=== PATIENT | male | born 1950 | race Caucasian/White ===

== ENCOUNTER → 2017-03-09 | Outpatient (REF) | payer MEDICARE, OTHER ==
--- NOTE | 2017-03-09 08:28 | REP ---
Clinical: Pain . Technique: Internal rotation, external rotation, and Y view left shoulder . Findings: No acute fracture or dislocation. The acromioclavicular and glenohumeral joints are intact. No periarticular calcifications or degenerative changes are appreciated. Sub acromial space is normal. Surrounding soft tissues are unremarkable. Impression: Normal age appropriate radiographic appearance to the left shoulder radiographs. Signed by Alon Oglesby MD 03/09/2017 08:19 A
--- NOTE | 2017-03-09 08:42 | REP ---
RIGHT ELBOW SERIES COMPLETE: 03/09/2017. Clinical history: Right elbow pain. Findings: Four views are provided. There is a small spur at the triceps insertion of the olecranon on the lateral view with minimal soft tissue swelling overlying. I do not see an elbow joint effusion. The radial head and capitellum align normally on all views. Medial and lateral epicondyles without abnormal soft tissue calcifications. Impression: 1. There is minor swelling about the olecranon with small spur at the triceps insertion. No visible fracture, avulsion, joint effusion or other acute finding. Please note that this study has only just been made available for my signature in my sign queue. Signed by Praful Monroe MD 03/15/2017 08:13 P
== END ==
LOC: M RAD 03-08 07:18 → EDSTATUS 03-08 13:07 → M RAD 06:20
PROVIDERS: ATTEND Registered Nurse
DX: M25.512 Pain in left shoulder (principal); M25.521 Pain in right elbow

== ENCOUNTER → 2018-10-22 | Outpatient (REF) | payer OTHER, MEDICARE ==
[2018-10-22 12:48] LABS: HEMATOCRIT 39.6 % (42.0-52.0); HEMOGLOBIN 13.2 g/dl (13.5-17.5); MEAN CORPUSCULAR HEMOGLOBIN 29.2 pg (27.0-33.0); MEAN CORPUSCULAR HGB CONC 33.3 g/dl (32.0-36.5); MEAN CORPUSCULAR VOLUME 87.6 fl (80.0-96.0); PLATELET COUNT, AUTOMATED 197 10^3/uL (150-450); RED BLOOD COUNT 4.52 10^6/uL (4.30-6.10); WHITE BLOOD COUNT 4.5 10^3/uL (4.0-10.0)
[2018-10-22 13:05] LABS: ALBUMIN 3.4 GM/DL (3.2-5.2); ALT/SGPT 27 U/L (12-78); BILIRUBIN,TOTAL 0.5 MG/DL (0.2-1.0); BLOOD UREA NITROGEN 22 MG/DL (7-18); CALCIUM LEVEL 8.5 MG/DL (8.8-10.2); CARBON DIOXIDE LEVEL 31 MEQ/L (21-32); CHLORIDE LEVEL 106 MEQ/L (98-107); CHOLESTEROL LEVEL 169 MG/DL (<200); CHOLESTEROL RISK RATIO 2.194 (<5); CREATININE FOR GFR 0.84 MG/DL (0.70-1.30); GLOMERULAR FILTRATION RATE > 60.0 (>42); GLUCOSE, FASTING 86 MG/DL (70-100); HDL CHOLESTEROL 77 MG/DL (>40); LDL CHOLESTEROL 81 MG/DL (<100); NON-HDL-C 92 MG/DL; POTASSIUM SERUM 4.2 MEQ/L (3.5-5.1); SODIUM LEVEL 140 MEQ/L (136-145); TOTAL PROTEIN 6.6 GM/DL (6.4-8.2); TRIGLYCERIDES LEVEL 53 MG/DL (<150)
== END ==
LOC: M LABDRAW1 12:08
PROVIDERS: ATTEND Internal Medicine
DX: Z00.00 Encounter for general adult medical examination without abnormal findings (principal); Z12.5 Encounter for screening for malignant neoplasm of prostate
CPT/HCPCS: 36415; 80053; 80061; 85027; G0103

== ENCOUNTER → 2021-04-14 | Outpatient (CLI) | payer MEDICARE ==
--- NOTE | 2021-04-15 15:57 | SLEEPCENT ---
DATE: 04/14/2021 ORDERED BY: Claudia Guzman Nocturnal polysomnography was performed for evaluation of sleep physiology in this patient with a history of snoring and irregular breathing in sleep. There was 7 hours and 40 minutes of data reviewed. There was 384.5 minutes of sleep identified. Sleep latency was short at 7.5 minutes. REM latency was normal at 104 minutes. Sleep architecture was fair. There were three REM cycles. Periods of wake were noted. Overall sleep efficiency 84.7%. The electrocardiogram showed a sinus rhythm with an average heart rate of 52 beats per minute. Rate ranged 40-75. EEG showed normal waveforms for wake and sleep. There were 273 respiratory events identified of 10 seconds in duration or greater for an apnea-hypopnea index of 42.6. The events were primarily obstructive, not exclusive to sleep stage, though REM clustering was noted, and not exclusive to sleep position. Arousals from respiratory events occurred 30.7 times per hour, and oxygen desaturations were seen into the 70s. There was minimal limb activity, and remaining measures of sleep physiology were normal. IMPRESSION: Severe obstructive sleep apnea syndrome (G47.33). Apnea-hypopnea index 42.6. RECOMMENDATION: The patient should be encouraged to return to the sleep disorder center for pressure therapy at his earliest convenience. In the interim, alcohol and sedative avoidance should be practiced and caution exercised during the operation of motor vehicles.
== END ==
LOC: M SLEEP 20:00
PROVIDERS: ATTEND Nurse Practitioner Family
DX: R06.83 Snoring (principal)

== ENCOUNTER → 2021-05-05 | Outpatient (CLI) | payer MEDICARE ==
--- NOTE | 2021-05-06 14:38 | SLEEPCENT ---
DATE: 05/05/2021 ORDERED BY: Claudia Guzman Nocturnal polysomnography was performed for the titration of pressure therapy in this patient with obstructive sleep apnea syndrome, apnea-hypopnea index 42.6. For testing, a [employer]Med nasal pillows device of small size was used. There was 4 cm of water pressure applied to the circuit, and the lights were extinguished. There was 6 hours and 56 minutes of data reviewed. There was 295.5 minutes of sleep identified. Sleep latency was short at 17.5 minutes. REM sleep was delayed at 253 minutes. Sleep architecture improved later in the study with optimal pressure therapy. Overall sleep efficiency is 71.8%. The electrocardiogram showed a sinus rhythm with an average heart rate of 50 beats per minute. EEG showed normal waveforms for wake and sleep. Respiratory were fully palliated with CPAP at a pressure of 10, and remaining measures of sleep physiology were normal. IMPRESSION: Obstructive sleep apnea syndrome. RECOMMENDATION: Nightly use of pressure therapy, 10 cm of water.
== END ==
LOC: M SLEEP 20:00
PROVIDERS: ATTEND Nurse Practitioner Family
DX: G47.33 Obstructive sleep apnea (adult) (pediatric) (principal)

== ENCOUNTER → 2023-07-13 | Outpatient (CLI) | payer MEDICARE | LOC: M PLALAB 08:44 | PROVIDERS: ATTEND Internal Medicine Hematology | DX: M47.812 Spondylosis without myelopathy or radiculopathy, cervical region (principal) ==